=== PATIENT | female | born 1935 | race Caucasian/White ===

== ENCOUNTER → 2018-01-02 | Outpatient (CLI) | payer MEDICARE ==
[~2018-01-02] MED LIST: ALPR0.25 PO; ASPI325T17 PO; BUPR150T6 PO; FLEC100T PO; KETO5DRO77 EACHEYE; LEVO100T5 PO; MELA5TAB19 PO; OMEP20CA9 PO; OMNIPAQUE 350 MG/ML, 75ML BOTTLE ONE; PRED1DRO EACHEYE; ROSU10TA PO
== END | disposition home or self-care (01) ==
LOC: RAD 09:34
PROVIDERS: ATTEND Internal Medicine Cardiovascular Disease
DX: G31.89 Other specified degenerative diseases of nervous system (principal)
CPT/HCPCS: 70470; Q9967

== ENCOUNTER 2019-05-08 11:50 | Emergency (ER) | payer MEDICARE ==
[~2019-05-08] VITALS: Ht 160 cm; Wt 66.5 kg
[~2019-05-08 11:50] MED LIST changes: +MELA5TAB14 PO; -MELA5TAB19 PO; -OMNIPAQUE 350 MG/ML, 75ML BOTTLE ONE; -ROSU10TA PO; +ROSU10TA2 PO
[2019-05-08 12:00] VITALS: BP 183/75
[2019-05-08] MEDS ORDERED: LIDOCAINE-MPF 1%, 2ML ONE ×2 (12:12→12:21)
[2019-05-08] MEDS ORDERED: DIPH,PERTUSS(ACELL),TET VAC/PF 0.5 ML IM-VACC ONE ×2 (12:12→12:30)
[2019-05-08] MEDS ORDERED: LIDOCAINE 1%-EPI 1:100K, 20ML INFIL ONE (12:30)
[2019-05-08] MEDS ORDERED: [UNRECOGNIZED DRUG - CODE] (12:35)
[2019-05-08] MEDS ORDERED: BUSPIRONE HCL PO (12:35)
[2019-05-08] MEDS ORDERED: Tylenol Arthritis PO (12:35)
[2019-05-08] MEDS ORDERED: MELA10CA PO (12:35)
[2019-05-08] MEDS ORDERED: ALPR0.5T7 PO (12:35)
[2019-05-08] MEDS ORDERED: LEVO88TA4 PO (12:35)
--- NOTE | 2019-05-08 12:35 | NUR ---
Pt transfered on gurlinn to CT. TUCKER. No needs expressed.
--- NOTE | 2019-05-08 12:40 | NUR ---
LATE NOTE FOR 1219: TASK RN: FIRST CONTACT WITH PT. PROVIDED MEDICATIONS PER EMAR. NADN. NO NEEDS EXPRESSED.
[2019-05-08] MEDS ORDERED: NEOSPORIN OINT. PKT 1 PACKET ONE (13:15)
== END 2019-05-08 13:43 | disposition home or self-care (01) ==
LOC: ED 13:30
DX: S01.112A Laceration without foreign body of left eyelid and periocular area, initial encounter (principal); I48.91 Unspecified atrial fibrillation; Z86.73 Personal history of transient ischemic attack (TIA), and cerebral infarction without residual deficits; Z79.82 Long term (current) use of aspirin; Z90.710 Acquired absence of both cervix and uterus; W18.39XA Other fall on same level, initial encounter; Y93.89 Activity, other specified; Y92.89 Other specified places as the place of occurrence of the external cause; Y99.8 Other external cause status
CPT/HCPCS: 12011; 70450; 90471; 90715; 99284